=== PATIENT | female | born 2000 | race Caucasian/White ===

== ENCOUNTER 2019-12-16 00:01 | Emergency (ER) | payer SELFPAY ==
--- NOTE | 2019-12-16 01:15 | ED ---
GI/ HPI - HPI Summary HPI Summary: 19 year old F presenting to [facility] accompanied by female friend complains of nausea/vomiting every 10-20 minutes and epigastric pain since 2129 yesterday 12/15. The patient states she was feeling fine during the day yesterday 2019. No diarrhea. The patient rates the pain 6/10 in severity. Symptoms aggravated by nothing. Symptoms alleviated by nothing. No PMHx. Patient does not take any medications. LNMP now. - History of Current Complaint Chief Complaint: EDNauseaVomitDiarrh Time Seen by Provider: 12/16/19 01:10 Stated Complaint: NAUSEA PER PT Hx Obtained From: Patient Onset/Duration: Started Hours Ago - 2129 yesterday 12/15/2019, Still Present Timing: Intermittent Current Severity: Moderate Pain Intensity: 6 Aggravating Factor(s): Nothing Alleviating Factor(s): Nothing - Allergy/Home Medications Allergies/Adverse Reactions: Allergies Allergy/AdvReac Type Severity Reaction Status Date / Time No Known Allergies Allergy Verified 12/16/19 01:25 PMH/Surg Hx/FS Hx/Imm Hx Endocrine/Hematology History: Denies: Hx Diabetes Cardiovascular History: Denies: Hx Hypertension - Surgical History Surgical History: None Infectious Disease History: No Infectious Disease History: Reports: Traveled Outside the [place] in Last 30 Days - [place] - Family History Known Family History: Negative: Blood Disorder - Social History Alcohol Use: None Substance Use Type: Reports: None Hx Tobacco Use: No Smoking Status (MU): Never Smoked Tobacco Review of Systems Negative: Fever Positive: Abdominal Pain, Vomiting, Nausea. Negative: Diarrhea All Other Systems Reviewed And Are Negative: Yes Physical Exam - Summary Physical Exam Summary: Appearance: Well-appearing, Well-nourished, lying in bed comfortably Skin: Warm, dry, no obvious rash Eyes: sclera anicteric, no conjunctival pallor ENT: mucous membranes moist, pharynx appears normal Neck: Supple, nontender Respiratory: Clear to auscultation, no signs of respiratory distress Cardiovascular: Mild tachycardia. Normal S1, S2. No murmurs. Normal distal pulses in tibial and radial bilaterally. Abdomen: Soft, nontender, normal active bowel sounds present Musculoskeletal: Normal, Strength/ROM Intact Neurological: A&Ox3, awake and alert, mentation is normal, speech is fluent and appropriate Psychiatric: affect is normal, does not appear anxious or depressed Triage Information Reviewed: Yes Vital Signs On Initial Exam: Initial Vitals Temp Pulse Resp BP Pulse Ox 96.7 F 129 20 120/70 98 12/16/19 00:02 12/16/19 00:02 12/16/19 00:02 12/16/19 00:02 12/16/19 00:02 Vital Signs Reviewed: Yes Procedures - Sedation Patient Received Moderate/Deep Sedation with Procedure: No Diagnostics - Vital Signs Vital Signs Temp Pulse Resp BP Pulse Ox 12/16/19 00:02 96.7 F 129 20 120/70 98 - Laboratory Result Diagrams: 12/16/19 01:19 12/16/19 01:19 Lab Statement: Any lab studies that have been ordered have been reviewed, and results considered in the medical decision making process. GIGU Course/Dx - Course Course Of Treatment: 19 y/o F with no significant PMHx presents with nausea/ vomiting every 10-20 minutes and epigastric pain since 2129 yesterday 12/15/2019. Upon exam, the patient is mildly tachycardic. Bloodwork results with no significant abnormalities except for WBC 12.4, MCH 32, absolute neuts 11.4, absolute lymphs 0.3, BUN/creatinine 23.4, glucose 127. In the ED course, the patient was given Zofran and normal saline fluids. Patient will be discharged home with prescription for Zofran and follow up from [facility]. Patient was instructed to return to Emergency Department for new or worsening symptoms. Patient understands and is agreeable to this plan. - Diagnoses Provider Diagnoses: Acute gastroenteritis Discharge ED - Sign-Out/Discharge Documenting (check all that apply): Patient Departure - Discharge Plan Condition: Good Disposition: HOME Prescriptions: Ondansetron TAB* [Zofran 4 MG Tab*] 8 mg PO Q6H PRN #12 tab PRN Reason: Nausea Patient Education Materials: Gastroenteritis (ED), Acute Nausea and Vomiting ( ED) Referrals: [facility] - Joseph PANIAGUA [Primary Care Provider] - 2 Days (if not better) - Billing Disposition and Condition Condition: GOOD Disposition: Home - Attestation Statements Document Initiated by Scribe: Yes Documenting Scribe: Eileen Ortiz Provider For Whom Scribe is Documenting (Include Credential): Vishal Forte MD Scribe Attestation: I, Eileen Ortiz, scribed for Vishal Forte MD on 12/16/19 at 0553. Scribe Documentation Reviewed: Yes Provider Attestation: The documentation as recorded by the scribeEileen accurately reflects the service I personally performed and the decisions made by me, Vishal Forte MD Status of Scrcarolyn Document: Viewed
[2019-12-16] MEDS: Ondansetron ODT TAB* 4 MG SL ONE ×2 (01:16→04:33)
[2019-12-16 01:27] LABS: ABS Lymphocytes 0.3 10^3/ul (1.0-4.8); ABS Monocytes 0.6 10^3/ul (0-0.8); ABS Neutrophils 11.4 10^3/ul (1.5-7.7); Eosinophil % 0.1 %; Hematocrit 44 % (35-47); Hemoglobin 15.1 g/dL (12.0-16.0); Lymphocyte % 2.7 %; Mean Corpuscular HGB Conc 35 g/dL (31-36); Mean Corpuscular Hemoglobin 32 pg (27-31); Mean Corpuscular Volume 91 fL (80-97); Platelet Count 225 10^3/uL (150-450); Red Blood Count 4.79 10^6 /uL (3.70-4.87); Red Cell Distribution Width 14 % (10-15); White Blood Count 12.4 10^3/uL (3.5-10.8)
[2019-12-16 01:43] LABS: ALT 14 U/L (7-52); AST 13 U/L (13-39); Albumin 4.4 g/dL (3.2-5.2); Albumin/Globulin Ratio 1.6 (1-3); Alkaline Phosphatase 54 U/L (34-104); Anion Gap 8 mmol/L (2-11); BUN/Creatinine Ratio 23.4 (8-20); Blood Urea Nitrogen 18 mg/dL (6-24); CO2 Carbon Dioxide 26 mmol/L (22-32); Calcium 9.5 mg/dL (8.6-10.3); Chloride 104 mmol/L (101-111); EGFR African American 115.6 (>60); EGFR Non-African American 95.6 (>60); Globulin 2.8 g/dL (2-4); Glucose 127 mg/dL (70-100); Potassium 3.8 mmol/L (3.5-5.0); Sodium 138 mmol/L (135-145); Total Protein 7.2 g/dL (6.4-8.9)
[2019-12-16 01:49] LABS: HCG Pregnancy < 0.60 mIU/mL
[2019-12-16] MEDS: NS 0.9% 1000 ML** 2,000 ML IV ONE (01:56)
[2019-12-16] MEDS: Ondansetron INJ* 2 MG/ML VIAL IV ONE (01:59)
[2019-12-16 04:37] VITALS: BP 116/81
== END 2019-12-16 04:35 | disposition home or self-care (01) ==
LOC: ED 00:01
DX: K52.9 Noninfective gastroenteritis and colitis, unspecified (principal)
CPT/HCPCS: 36415; 80053; 84702; 85025; 96361; 96374; 99283; A9270-GY; J2405